=== PATIENT | female | born 1970 | race Caucasian/White ===

== ENCOUNTER 2022-05-27 22:03 | Emergency (ER) | payer OTHER, SELFPAY ==
[2022-05-27 22:14] VITALS: BP 120/64; PULSE 82; O2SAT 96
--- NOTE | 2022-05-27 22:23 | ED.ABDPAIN ---
HPI - Abdominal Pain General Chief Complaint: Abdominal Pain Stated Complaint: abd pain Time Seen by Provider: 05/27/22 22:22 Source: patient Mode of arrival: EMS Limitations: no limitations History of Present Illness HPI narrative: Patient 51 years homeless came with feeling of something coming out in the vagina since 02/15 looking for residential to stay no urinary complaints no fever no vaginal discharge Related Data Allergies Allergy/AdvReac Type Severity Reaction Status Date / Time morphine [MORPHINE] Allergy Unknown HIVES Unverified 05/13/20 18:46 Review of Systems Review of Systems Yes all other systems are reviewed and are negative [facility] Social History Social History Advance Directives: No Physical Exam ED Appearance: Alert. Oriented X3. No acute distress. ENT: Pharynx normal. Oral Mucosa moist Neck: Normal inspection. Neck supple. CVS: Normal heart rate and rhythm. Pulses normal. Respiratory: No respiratory distress. Equal air entry bilateral, no wheezing/rales/rhonchi Abdomen: Soft and nontender. Bowel sounds are present, no mass palpable, no CVA tenderness Vaginal exam; prolapse of anterior vaginal wall was cystocele no vaginal discharge Skin: Skin warm and dry. Normal skin color. Normal skin turgor. Extremities: No lower extremity edema. No calf tenderness Neuro: Oriented X 3. No motor deficit. MDM - Abdominal Pain MDM Narrative Medical decision making narrative: Patient has a cystocele no acute abdomen advised to follow with lead furnace operator Discharge Plan Discharge Clinical Impression: Cystocele with prolapse Patient Disposition: Home, Self-Care Instructions: Kegel Exercises for Women (DC), Bladder Sling (DC) Additional Instructions: Follow-up with lead furnace operator for further management for of cystocele you may need a pessary Referrals: Billy Mcneal MD [Physician] - 1 week
[2022-05-27 23:18] VITALS: BMI 25.1
== END 2022-05-27 23:47 | disposition home or self-care (01) ==
LOC: HO.ED 23:14
PROVIDERS: Emergency Provider Internal Medicine
DX: N81.4 Uterovaginal prolapse, unspecified (principal); R10.9 Unspecified abdominal pain
CPT/HCPCS: 99282